=== PATIENT | female | born 1985 | race Caucasian/White ===

== ENCOUNTER 2017-04-28 15:02 | Emergency (ER) | payer OTHER ==
[2017-04-28 15:06] VITALS: TEMP 97.8; BMI 26.4
--- NOTE | 2017-04-28 15:43 | PDOC ---
History of Present Illness - General Chief Complaint: Headache Stated Complaint: HEADACHES Time Seen by Provider: 04/28/17 15:22 - History of Present Illness Initial Comments: 04/28/17 16:46 Patient is a 32-year-old female with past medical history of hypothyroidism, GERD who presents to the emergency department complaining of headache. Patient states that her headache has lasted 2 days and rates the pain an 8 out of 10. She states that the pain is mostly at the top of her head wraps around her forehead and goes down her neck. Admits to photophobia and phonophobia. She states that this is like her usual headache pattern but the intensity is a little worse this time. She states that she has been studying a lot recently. Admits to fatigue and right flank pain. Denies nausea, vomiting, neck stiffness , worsening headache with position change, pain waking her up from sleep, chest pain, shortness of breath. Past History - Travel Traveled outside of the country in the last 30 days: No Close contact w/someone who was outside of country & ill: No - Past Medical History Allergies/Adverse Reactions: Allergies Allergy/AdvReac Type Severity Reaction Status Date / Time No Known Allergies Allergy Verified 04/28/17 15:06 Home Medications: Ambulatory Orders Levothyroxine [Synthroid -] 88 mcg PO DAILY 04/28/17 Omeprazole 20 mg PO DAILY 04/28/17 Sulfamethoxazole/Trimethoprim [Bactrim Ds Tablet] 1 each PO BID #14 tablet 04/28 Thyroid Disease: Yes - Psycho/Social/Smoking Cessation Hx Anxiety: No Suicidal Ideation: No Smoking History: Never smoked Hx Alcohol Use: No Drug/Substance Use Hx: No Substance Use Type: None Review of Systems - Review of Systems Able to Perform ROS?: Yes Is the patient limited Estonian proficient: No Constitutional: Yes: Malaise. No: Chills, Weakness HEENTM: No: Eye Pain, Blurred Vision, Recent change in vision Respiratory: No: Cough, Shortness of Breath Cardiac (ROS): No: Chest Pain, Lightheadedness, Chest Tightness ABD/GI: No: Diarrhea, Nausea, Vomiting : Yes: Frequency, Flank Pain. No: Burning, Dysuria Musculoskeletal: No: Neck Pain, Joint Stiffness Neurological: Yes: Headache. No: Numbness, Paresthesia, Tingling, Tremors, Weakness, Unsteady Gait, Dizziness All Other Systems: Reviewed and Negative *Physical Exam - Vital Signs Last Vital Signs Temp Pulse Resp BP Pulse Ox 97.8 F 79 20 99/64 99 04/28/17 15:02 04/28/17 15:02 04/28/17 15:02 04/28/17 15:02 04/28/17 15:02 - Physical Exam General Appearance: Yes: Nourished, Appropriately Dressed, Mild Distress (has her face covered with her burka to shield her from looking at the lights) Neck: positive: Trachea midline, Supple. negative: Tender, Rigid (- brudinskis and kernigs sign) Cardiovascular: positive: Regular Rhythm, Regular Rate, S1, S2 (present). negative: Murmur Musculoskeletal: positive: Muscle Spasm (At the level of the paraspinous muscles near the trapezious) Extremity: positive: Normal Capillary Refill, Normal Inspection, Normal Range of Motion Neurologic: positive: internal audit senior manager II-XII NML intact, Fully Oriented, Alert, Normal Mood/ Affect, Normal Response, Motor Strength 5/5, Other (Gross sensation intact) ED Treatment Course - LABORATORY CBC & Chemistry Diagram: 04/28/17 17:30 04/28/17 17:30 Medical Decision Making - Medical Decision Making 04/28/17 16:51 Patient is a 32-year-old female with past medical history of hypothyroidism, GERD who presents to the emergency department complaining of headache and fatigue. Since her headache presents like her normal headache and given that there is no sudden onset of her symptoms will not scan at this time. Given her complaints we'll do a broad workup to rule out anemia, hypothyroidism, cardiac issues. If CBC is normal we'll give Toradol for pain. We'll give Tylenol at this time. Eye exam is normal 20/20 both eyes. 04/28/17 17:25 CBC is normal we'll give Toradol 60 IM at this time and reevaluate. 04/28/17 18:36 All lab work is normal at this time patient states that her pain is now 4 out of 10 with the Toradol. Is most likely a tension headache. Urine shows positive leuk esterase and blood. We'll treat for UTI at this time Bactrim was sent to her pharmacy. She can use NSAIDs and symptomatic relief including heating pads and massage. Patient understands all discharge instructions and all questions were answered at this time. *DC/Admit/Observation/Transfer Diagnosis at time of Disposition: Tension headache - Discharge Dispostion Admit: No - Prescriptions Prescriptions: Sulfamethoxazole/Trimethoprim [Bactrim Ds Tablet] 1 each PO BID #14 tablet - Referrals Referrals: STAFF,NOT ON [Primary Care Provider] - - Patient Instructions Printed Discharge Instructions: DI for Hormonal and Tension Headaches, DI for Urinary Tract Infection (UTI) Additional Instructions: Your lab work shows a urinary tract infection. You were prescribed antibiotics. Take the full dose even if you are feeling better. Drink plenty of fluids including water and cranberry juice. You also have a tension headache. Take ibuprofen 600mg every 6 hrs until the headache is resolved. Massage the neck and shoulders to help relieve the pain. You may use a heating pad on the back to help relax the muscles. This can be found over the counter. You may take a benadryl tonight to help sleep. This may help with the headache as well. Return to the ED if your headache gets worse, you have visual changes, vomiting or any other changes in your symptoms. Print Language: SINHALA
[2017-04-28] MEDS ORDERED: ACETAMINOPHEN 325 MG TABLET (FP) PO ONE (16:14)
[2017-04-28] MEDS ORDERED: ACETAMINOPHEN 650 MG/20.3 ML ORAL SOLUTION (CUPS) ONE (16:26)
--- NOTE | 2017-04-28 17:19 | PDOC ---
*Physical Exam - Vital Signs Last Vital Signs Temp Pulse Resp BP Pulse Ox 97.8 F 79 20 99/64 99 04/28/17 15:02 04/28/17 15:02 04/28/17 15:02 04/28/17 15:02 04/28/17 15:02 ED Treatment Course - LABORATORY CBC & Chemistry Diagram: 04/28/17 17:30 04/28/17 17:30 - Medications Given in the ED: ED Medications Discontinued Medications Generic Name Dose Route Start Last Admin Trade Name Alexis PRN Reason Stop Dose Admin Acetaminophen 650 mg 04/28/17 16:14 04/28/17 16:39 Tylenol - PO 04/28/17 16:15 650 mg ONCE ONE Administration Medical Decision Making - Medical Decision Making 04/28/17 17:18 32 yo F presenting to the ER with a complaint of headache Symptoms have been present for 2 days No head trauma No fevers No nuchal rigidity Pt seen by Midlevel Provider under my direct supervision Ancillary studies reviewed I agree with plan as outlined by Midlevel Provider *DC/Admit/Observation/Transfer Diagnosis at time of Disposition: Tension headache - Prescriptions Prescriptions: Sulfamethoxazole/Trimethoprim [Bactrim Ds Tablet] 1 each PO BID #14 tablet - Referrals Referrals: STAFF,NOT ON [Primary Care Provider] - - Patient Instructions Printed Discharge Instructions: DI for Urinary Tract Infection (UTI), DI for Hormonal and Tension Headaches Additional Instructions: Your lab work shows a urinary tract infection. You were prescribed antibiotics. Take the full dose even if you are feeling better. Drink plenty of fluids including water and cranberry juice. You also have a tension headache. Take ibuprofen 600mg every 6 hrs until the headache is resolved. Massage the neck and shoulders to help relieve the pain. You may use a heating pad on the back to help relax the muscles. This can be found over the counter. You may take a benadryl tonight to help sleep. This may help with the headache as well. Return to the ED if your headache gets worse, you have visual changes, vomiting or any other changes in your symptoms. Print Language: ICELANDIC
[2017-04-28 17:45] LABS: BASOPHIL 0.6 % (0-2.0); EOSINOPHIL 1.5 % (0-4.5); MCH 24.3 pg (25.7-33.7); MCHC 31.6 g/dl (32.0-36.0); MEAN CELL VOLUME 76.8 fl (80-96); MEAN PLT VOLUME 8.4 fl (7.5-11.1); PLATELET COUNT 284 K/MM3 (134-434); RDW 14.9 % (11.6-15.6); WHITE BLOOD COUNT 5.7 K/mm3 (4.0-10.0)
[2017-04-28] MEDS ORDERED: KETOROLAC TROMETHAMINE 30 MG/1 ML VIAL IVPUSH ONE (17:52)
[2017-04-28] MEDS ORDERED: KETOROLAC TROMETHAMINE 30 MG/1 ML VIAL ONE (17:55)
[2017-04-28 18:11] LABS: URINE APPEARANCE CLEAR; URINE BILIRUBIN NEGATIVE (NEGATIVE); URINE COLOR COLORLESS; URINE GLUCOSE (UA) NEGATIVE (NEGATIVE); URINE KETONE NEGATIVE (NEGATIVE); URINE NITRITE NEGATIVE (NEGATIVE); URINE PROTEIN NEGATIVE (NEGATIVE); URINE UROBILINOGEN NEGATIVE mg/dL (0.2-1.0)
[2017-04-28 18:22] LABS: URINE BLOOD 1+ (NEGATIVE); URINE LEUK ESTERASE 2+ (NEGATIVE)
[2017-04-28 18:27] LABS: ALBUMIN 3.7 g/dl (3.4-5.0); ALK PHOS 89 U/L (45-117); ANION GAP 6 (8-16); BILIRUBIN,TOTAL 0.1 mg/dL (0.2-1.0); CALCIUM 8.7 mg/dL (8.5-10.1); CO2 27 mmol/L (21-32); CREATININE 0.6 mg/dL (0.55-1.02); GLUCOSE,RANDOM 101 mg/dL (74-106); SGPT/ALT 16 U/L (12-78); TOT PROT 7.7 g/dl (6.4-8.2)
[2017-04-28 18:28] LABS: URINE RBC <1 /hpf (0-3); URINE WBC 2 /hpf (3-5)
[2017-04-28 18:35] LABS: THYROID STIMULATING HORMONE 0.64 uIU/ml (0.358-3.74)
[2017-04-28 18:36] LABS: SGOT/AST 17 U/L (15-37)
[2017-04-28 18:58] LABS: TROPONIN I < 0.02 ng/ml (0.00-0.05)
[2017-04-28 19:17] VITALS: BP 101/62; PULSE 82
== END 2017-04-28 19:17 | disposition home or self-care (01) ==
LOC: JER 15:02
PROC: 3E0333Z Introduction of Anti-inflammatory into Peripheral Vein, Percutaneous Approach (ICD-10-PCS; principal; 2017-04-28)
DX: G44.209 Tension-type headache, unspecified, not intractable (principal)
CPT/HCPCS: 36415; 80053; 81003; 81015; 82550; 84443; 84484; 84703; 85025; 87086; 96374; 99282-25